=== PATIENT | male | born 1970 | race Hispanic/Latino ===

== ENCOUNTER → 2025-01-12 09:36 | Outpatient (REF) | payer OTHER, SELFPAY ==
[2025-01-12 10:59] LABS: Hematocrit 42.5 % (39.0-52.0); Hemoglobin 14.3 g/dL (13.0-18.0); Mean Corp Hgb Conc. 33.6 g/dL (33.0-37.0); Mean Corpuscular Volume 79.7 fL (80.0-94.0); Nucleated Red Blood Cells % 0 % (-); Platelet Count 198 10^3/uL (130-400); Red Cell Dist. Width 12.9 % (11.5-14.5)
[2025-01-12 11:18] LABS: Microalb - Urine Creatinine 249.400 mg/dl
[2025-01-12 11:24] LABS: Microalbumin, Random Urine 10.3 mg/dl (0.6-1.7)
[2025-01-12 11:27] LABS: ALT (SGPT) 40 U/L (0-50); AST (SGOT) 29 U/L (17-59); Albumin 4.6 g/dl (3.5-5.0); Alkaline Phosphatase 70 U/L (38-126); Blood Urea Nitrogen 13 mg/dl (9-20); Calcium 9.5 mg/dl (8.4-10.2); Carbon Dioxide 25 mmol/L (22-30); Chloride 105 mmol/L (98-107); Glucose 189 mg/dl (70-99); HDL Cholesterol 94 mg/dl; LDL Cholesterol, Calculated 84 mg/dl; Potassium 4.4 mmol/L (3.5-5.1); Sodium 136 mmol/L (135-145); Total Protein 7.8 g/dl (6.3-8.2); Very Low Density Lipoprotein 19 mg/dl (0-30); eGFR > 60.00
[2025-01-12 11:53] LABS: TSH 1.43 uIU/ml (0.47-4.68)
[2025-01-12 12:29] LABS: Glycohemoglobin (HgbA1c) 7.9 % (4.0-5.9)
== END ==
LOC: REG 09:36
PROVIDERS: ATTENDING PHYSICIAN Physician Assistant
DX: E10.65 Type 1 diabetes mellitus with hyperglycemia (principal); E78.5 Hyperlipidemia, unspecified
CPT/HCPCS: 36415; 80053; 80061; 82043; 82570; 82784; 83036; 83516; 84156; 84443; 85025; 86231